=== PATIENT | male | born 1995 | race African-American/Black ===

== ENCOUNTER 2019-10-26 07:06 | Emergency (ER) | payer SELFPAY ==
[2019-10-26 07:08] VITALS: BP 146/87; PULSE 89; RESP 20; TEMP 36.8; O2SAT 100
--- NOTE | 2019-10-26 07:27 | PC.NURSE ---
strep culture sent to lab.
--- NOTE | 2019-10-26 07:37 | ED.URI ---
HPI - URI/Sore Throat General Chief Complaint: Upper Respiratory Infection Stated Complaint: SORE THROAT Time Seen by Provider: 10/26/19 07:08 History of Present Illness HPI Narrative: Patient is a 23-year-old male who presents ER with sore throat for the last day. Reports his girlfriend had strep throat he is concerned he has same thing. He is also had nasal congestion with a productive cough. Pain is worse when he talks. No chest pain or chest pressure. He has been afebrile. Patient also reports he has a spider bite to his right mendoza which occurred 2 weeks ago and he like to just make sure it is okay. No purulent drainage or swelling. Lastly he would like a work note because he has to talk a lot is uncomfortable with his sore throat. Related Data Allergies Allergy/AdvReac Type Severity Reaction Status Date / Time No Known Allergies Allergy Verified 10/26/19 07:11 Review of Systems Constitutional: Constitutional: Denies chills, Denies fever(s) and Denies weakness ENT: Reports nasal congestion and Reports sore throat Cardiovascular: Cardiovascular: Denies chest pain and Denies radiating jaw, neck or arm pain Respiratory: Respiratory: Reports cough, Denies dyspnea and Denies wheezing PMFSH Past Medical History Medical History (Updated 10/26/19 @ 07:41 by Graeme Tee MD) Healthy adult male Surgical History Surgical History (Updated 10/26/19 @ 07:38 by Graeme Tee MD) No pertinent past surgical history Social History Social History (Updated 10/26/19 @ 07:39 by Graeme Tee MD) Substance use type: marijuana Exam Narrative: Exam Narrative: GENERAL: Well-appearing, well-nourished, and in no acute distress. HEAD: Normocephalic, atraumatic. ENT: Mucous membranes moist. No pharyngeal erythema or tonsillar exudate or tonsillar hypertrophy. NECK: Small anterior cervical chain LAD at the angle of the mandible on the right and left anterior neck. Nontender. CHEST: Clear to auscultation. No respiratory distress. HEART: Regular rate and rhythm. Normal peripheral pulses. SKIN: Warm, dry, no rash. Slight bruising around the anterior mendoza on the right where there is a scabbed over bite rosio. No evidence of infection. NEURO: Alert and oriented x3. Course Course Emergency Course: Strep negative. Recommend supportive care. Vital Signs Vital signs: Vital Signs Temperature 98.2 F 10/26/19 07:08 Pulse Rate 89 10/26/19 07:08 Respiratory Rate 20 10/26/19 07:08 Blood Pressure 146/87 H 10/26/19 07:08 Pulse Oximetry 100 10/26/19 07:08 Temperature 98.2 F 10/26/19 07:08 Pulse Rate 89 10/26/19 07:08 Respiratory Rate 20 10/26/19 07:08 Blood Pressure 146/87 H 10/26/19 07:08 Pulse Oximetry 100 10/26/19 07:08 MDM - URI/Sore Throat Lab Data Labs: Strep Screen Presumptive Negative *(Reference Range: Negative)* Strep Screen Presumptive Negative *(Reference Range: Negative)* Discharge Plan Discharge Clinical Impression: Upper respiratory infection Patient Disposition: Home, Self-Care Condition: Stable Instructions: Upper Respiratory Infection (ED) Additional Instructions: Return to the ER if he cannot breathe, you cannot swallow, you lose consciousness. Prescriptions: New fluticasone propionate [Flonase Allergy Relief] 50 mcg/actuation spray,suspension 1 spray NASAL DAILY Qty: 9.9 RF: 0 Cepacol Sore Throat (mara-men) 15-2.6 mg lozenge 1 lozenge MUCOUS MEM Q2-4H PRN (Reason: sore throat) Qty: 16 RF: 0 Follow-up/Referrals: PHYSICIAN,RETAIL SERVICE TECHNICIAN [Primary Care Provider] - Stand Alone Forms: Work/School Release IP
== END 2019-10-26 07:56 | disposition home or self-care (01) ==
LOC: ANHED 07:45
PROVIDERS: Emergency Provider Emergency Medicine
DX: J06.9 Acute upper respiratory infection, unspecified (principal)
CPT/HCPCS: 87081; 87147; 87880; 99283

== ENCOUNTER 2021-08-03 21:09 | Emergency (ER) | payer SELFPAY ==
[2021-08-03 21:13] VITALS: BP 156/96; PULSE 73; RESP 17; TEMP 36.4; O2SAT 100
--- NOTE | 2021-08-03 22:58 | ED.NECK ---
HPI - Neck Pain/Injury General Chief Complaint: Neck Pain/Injury Stated Complaint: right side neck pain Time Seen by Provider: 08/03/21 21:20 History of Present Illness HPI Narrative: 25-year-old male presents to the emergency room for evaluation of swollen lymph nodes in his neck. Patient states that he has had a swollen lymph node on the right side of his neck intermittently for the past month. Also reports sore throat. Patient states that he was seen at an outside family medicine clinic and was told that there were no infectious or inflammatory processes occurring, and was told to go home with ibuprofen. Patient states that he was not tested for strep or mono. Patient has a history of cancer in his family and is concerned that he may have thyroid cancer. Patient states the swollen lymph node is painful to touch. Patient also states that he frequently has white little balls in the back of his throat that appear and resolve intermittently Related Data Allergies Allergy/AdvReac Type Severity Reaction Status Date / Time No Known Allergies Allergy Verified 08/03/21 21:15 Review of Systems Review of Systems: CONSTITUTIONAL: Denies fever, chills, or sweats. EYES: Denies visual changes, redness, or discharge. ENT: Reports sore throat and cervical lymphadenopathy CARDIOVASCULAR: Denies chest pain, palpitations, or edema. RESPIRATORY: Denies cough or dyspnea. GASTROINTESTINAL: Denies abdominal pain, nausea, vomiting, or diarrhea. GENITOURINARY: Denies dysuria or hematuria. SKIN: Denies rash or itching. MUSCULOSKELETAL: Denies back pain, joint pain, or myalgia. NEUROLOGIC: Denies headache, numbness, dizziness, or weakness. PSYCHIATRIC: Denies anxiety or depression. PMFSH Past Medical History Medical History Healthy adult male Surgical History Surgical History No pertinent past surgical history Social History Social History Substance use type: marijuana Exam Narrative: GENERAL: Well-appearing, well-nourished, and in no acute distress. HEAD: Normocephalic, atraumatic. EYES: PERRLA and EOMI. ENT: Nares clear, no rhinorrhea or epistaxis. Mucous membranes moist. Cryptic tonsils bilaterally without hypertrophy exudate or lesions NECK: Supple. Right cervical lymphadenopathy CHEST: Clear to auscultation. No respiratory distress. No wheezes rales or rhonchi HEART: Regular rate and rhythm. No murmur heard. Normal peripheral pulses. ABDOMEN: Soft, nontender, nondistended, normal active bowel sounds. EXTREMITIES: Normal range of motion. No edema. SKIN: Warm, dry, no rash. NEURO: No focal deficits. Alert and oriented x3. PSYCH: Normal mood and affect. Course Vital Signs Vital signs: Vital Signs Temperature 36.4 C 08/03/21 21:13 Pulse Rate 73 08/03/21 21:13 Respiratory Rate 17 08/03/21 21:13 Blood Pressure 156/96 H 08/03/21 21:13 Pulse Oximetry 100 08/03/21 21:13 Temperature 36.4 C 08/03/21 21:13 Pulse Rate 73 08/03/21 21:13 Respiratory Rate 17 08/03/21 21:13 Blood Pressure 156/96 H 08/03/21 21:13 Pulse Oximetry 100 08/03/21 21:13 MDM - Neck Pain/Injury Lab Data Labs: Lab Results 08/03/21 08/03/21 08/03/21 Range/Units 22:50 22:50 22:50 TSH 2.950 (0.465-4.680) uIU/mL Monoscreen Negative (Negative) Grp A Beta Strep Ag Pending Strep Screen Presumptive Negative *(Reference Range: Negative)* Discharge Plan Discharge Clinical Impression: Calculus of tonsil, Adenopathy, cervical Patient Disposition: Home, Self-Care Condition: Stable Instructions: Antibiotic Form Additional Instructions: Recommend obtaining a WaterPik. If you notice tonsil stones just use a WaterPik to flush them out. Prescriptions: No Action flutica
[2021-08-03 23:16] LABS: Monoscreen Negative (Negative); Negative Monotest Control Negative (Negative); Positive Monotest Control Positive (Positive)
[2021-08-04 00:37] VITALS: PULSE 72; RESP 18; O2SAT 96
== END 2021-08-04 00:38 | disposition home or self-care (01) ==
PROVIDERS: Emergency Provider Nurse Practitioner Family
DX: J35.8 Other chronic diseases of tonsils and adenoids (principal); R59.9 Enlarged lymph nodes, unspecified
CPT/HCPCS: 84443; 86308; 87070; 87880; 96372; 99283; J1100